=== PATIENT | male | born 1955 | race Caucasian/White ===

== ENCOUNTER 2018-09-11 04:00 | Emergency (ER) | payer OTHER ==
[~2018-09-11] VITALS: Ht 188 cm; Wt 102.1 kg
[2018-09-11 04:06] VITALS: Ht 188 cm; Wt 102.1 kg
[2018-09-11 04:44] LABS: BASOPHIL % 0.5 % (0-2); PLATELET COUNT 246 x10^3mcL (130-400); RED CELL DISTRIBUTION WIDTH 14.5 % (11.5-14.5)
[2018-09-11 04:51] LABS: CALCIUM 9.1 mg/dL (8.5-10.1); CARBON DIOXIDE 23.6 mmol/L (21-32); CREATININE SERUM 1.5 mg/dL (0.7-1.3); POTASSIUM SERUM 3.8 mmol/L (3.5-5.1)
[2018-09-11 04:55] LABS: ALBUMIN 4.3 g/dL (3.4-5.0); BILIRUBIN TOTAL 0.7 mg/dL (0.20-1.00); TOTAL PROTEIN, SERUM 8.1 g/dL (6.4-8.2)
[2018-09-11 06:36] VITALS: BP 145/70
== END 2018-09-11 06:36 | disposition short-term general hospital (02) ==
LOC: ED 04:00
PROVIDERS: Emergency Medicine
DX: I21.9 Acute myocardial infarction, unspecified (principal); J81.1 Chronic pulmonary edema; Z88.2 Allergy status to sulfonamides
CPT/HCPCS: 36600; 83880; J1644; J1940; J2930; J7620; Q0092